=== PATIENT | female | born 1970 | race Caucasian/White ===

== ENCOUNTER 2017-10-21 11:11 | Inpatient (IN) ==
--- NOTE | 2017-10-20 20:50 | Discharge Summary ---
<Tessa Maher - Last Filed: 10/20/17 20:46> Date of Encounter: 10/20/17 - Discharge Diagnosis (1) Arthritis of knee, right Priority: Primary Status: Acute (2) Status post total knee replacement, right Priority: Primary Status: Acute (3) NANETTE (obstructive sleep apnea) Priority: Secondary Status: Chronic (4) Asthma Priority: Secondary Status: Chronic Qualifiers: Asthma severity: unspecified severity Asthma persistence: unspecified Asthma complication type: unspecified Qualified Code(s): J45.909 - Unspecified asthma, uncomplicated (5) Obesity Priority: Secondary Status: Chronic Qualifiers: Obesity type: due to excess calories Obesity classification: unspecified obesity classification Serious obesity comorbidity presence: unspecified whether serious comorbidity present Qualified Code(s): E66.09 - Other obesity due to excess calories - Hospital Course Hospital course: Ms. Mcfarland is a 47 year old female - Time Spent with Patient Total time spent providing and/or coordinating discharge services: - Discharge Medications Home Medications: Aspirin Enteric Coated [Aspirin EC] 325 mg PO BID 10 Days #20 tablet. [Rx] OxyCODONE Immed Rel [Roxicodone 5 MG] 5 mg PO Q6HR PRN 7 Days #28 tablet [Rx] Albuterol Sulfate [Albuterol Inhaler] 2 puff IH Q4H PRN 10/21/17 [History] Amlodipine Besylate 10 mg PO HS 10/21/17 [History] Aspirin 81 mg PO DAILY 10/21/17 [History] Atorvastatin [Lipitor] 40 mg PO HS 10/21/17 [History] Beclomethasone Diprop 80mcg [QVAR 80 mcg] 1 puff IH BID 10/21/17 [History] BuPROPion SR (12 HR) [Wellbutrin SR] 150 mg PO BID 10/21/17 [History] Cetirizine HCl [All Day Allergy] 10 mg PO DAILY 10/21/17 [History] Dicyclomine [Bentyl] 20 mg PO QID 10/21/17 [History] Duloxetine HCl [Cymbalta] 60 mg PO DAILY 10/21/17 [History] Losartan Potassium [Cozaar] 50 mg PO DAILY 10/21/17 [History] Meloxicam 15 mg PO DAILY 10/21/17 [History] Methocarbamol [Robaxin-750] 750 mg PO TID 10/21/17 [History] Mirtazapine [Remeron] 15 mg PO DAILY 10/21/17 [History] Pantoprazole Sodium 40 mg PO BID 10/21/17 [History] Zolpidem [Ambien] 10 mg PO HS 10/21/17 [History] raNITIdine HCl [Ranitidine HCl] 150 mg PO DAILY 10/21/17 [History] Allergies/Adverse Reactions: 3 Allergy/AdvReac Type Severity Reaction Status Date / Time hydrochlorothiazide Allergy Hives/ Verified 10/21/17 11:37 POTASSIUM DROPS Primary care physician: Josephine Noguera, - Patient Status Disposition: Transfer Inpatient Rehab Fac Condition: Good - Discharge Instructions Follow Up With: Hardy Jara MD [Partnered Physician] - 11/20/17 5:10 pm Tessa Maher PAC [Physician Site Auditor] - 10/31/17 9:00 am Jabier Myles MD [Partnered Physician] - 11/11/17 1:00 pm Josephine Noguera MD [Primary Care Provider] - Additional Instructions: Discharge Instructions: Total Knee Replacement Please call [facility] ([phone]), your Primary Care Physician, or report to the Emergency Room if you have any of the following symptoms: Nausea, vomiting, fever greater that 101.5, swelling, chest pain, shortness of breath, increased pain/redness/drainage/odor for your incision site, numbness/ tingling, or any other concerning symptoms. ACTIVITY:Weight-bearing as tolerated. You may progress off support (crutches or walker) as tolerated. MEDICATIONS: Upon discharge resume your home medications. Take all the medications as prescribed. Take a stool softener if taking narcotic pain medications. Stool softeners are only effective if you drink enough fluids. Drink 6-8 glass of water or fluids a day, unless this is not allowed for another health problem. Despite using stool softeners, if you haven't had a bowel movement in 3 days, please switch to a gentle laxative. Gentle laxatives are sold over the counter. You should have a bowel movement within 24 hours, if not call the office. You will be discharged from the hospital with a prescription for pain medication. You are encouraged to decrease the use of narcotic pain medication as tolerated. Should you require a refill, please call the office. [facility] prescribes narcotic pain medication for only 4-6 weeks after surgery. If you require pain medication beyond this time period, you may be referred to your Primary Care Physician or to the Pain Clinic for further evaluation. Plan ahead for refills on pain medication as many narcotics either need to be picked up at the office or mailed. It is best to call 48-72 hours in advance of needing a prescription refill so you don't run out of medication. To help control the post-operative pain, you may take NSAIDs (Aleve,Advil, Motrin, Ibuprofen, Naprosyn) or Tylenol as prescribed on the bottle in addition to the pain medication. ANTICOAGULATION (blood thinners): Continue your Aspirin, Lovenox or Coumadin as prescribed to help prevent a blood clot in the leg or in the lungs. As long as your incision remains dry and you tolerate the NSAIDs (Aleve, Advil, Motrin, ibuprofen, naprosyn), it is OK to use the NSAIDS while you are taking your anticoagulation medication. Should your incision start to drain, stop the NSAID and contact our office. Common symptoms of blood clot in the legs include: localized pain, swelling, calf tenderness, redness or discoloration of the skin. Blood clot in the lung symptoms include: shortness of breath, rapid pulse, sweating, and chest pain that worsens with deep breathing, coughing up blood, lightheadedness, feelings of anxiety. If you experience any of these symptoms notify your physician immediately, go to the emergency room, or if having trouble breathing, call 911. WOUND CARE: Leave the dressing on for 7 to 10days. You may change the dressing if it becomes saturated greater than 50%. Do not get the dressing wet at anytime. Wash your hands with antibacterial soap, rinse and dry prior to any wound care. If you have whitney the visiting nurse or rehab facility can remove the stapes 10-14 days after surgery and place steri-strips across the wound. Leave the steri-strips in place until they fall off on their won. You may let water from the shower run on top of the steri-strips. If you do not have a visiting nurse or rehab facility, you will need to return to the office at 10-14 days for the whitney to be removed. If you have itching or redness around the dressing call the office. FOLLOW-UP: Please follow up with your surgeon in the orthopedic clinic in 4 weeks from the day of surgery. If you have whitney that need to be removed, you will need to come back to the office in 10-14 days from the day of surgery. <Hardy Jara - Last Filed: 10/23/17 06:39> Orders not resulted at time of discharge: Pending orders 10/21/17 00:01 XR knee RT limited 1-2V [XR] Routine H/H [Hemoglobin and Hematocrit] [HEME] Routine 10/21/17 11:33 US anesthesia pain block [US] Routine Date of Encounter: 10/23/17 Time of Encounter: 06:39 - Discharge Diagnosis (1) Arthritis of knee, right Priority: Primary Status: Chronic (2) Status post total knee replacement, right Priority: Primary Status: Acute (3) NANETTE (obstructive sleep apnea) Priority: Secondary Status: Chronic (4) Asthma Priority: Secondary Status: Chronic Qualifiers: Asthma severity: unspecified severity Asthma persistence: unspecified Asthma complication type: unspecified Qualified Code(s): J45.909 - Unspecified asthma, uncomplicated (5) Morbid obesity with BMI of 50.0-59.9, adult Priority: Secondary Status: Chronic (6) Acute blood loss anemia Priority: Primary Status: Acute - Hospital Course Hospital course: Ms. Mcfarland is a 47 year old female Status post right total knee replacement The patient had an uneventful postoperative course. They received antibiotics and physical therapy and were discharged in stable condition. There will follow -up in the office in 2 weeks. - Time Spent with Patient Total time spent providing and/or coordinating discharge services: Primary care physician: Josephine Noguera, - Patient Status Functional capacity at discharge: uses cane/walker Overall status at discharge: patient is progressing back to baseline
--- NOTE | 2017-10-21 11:36 | Anesthesia Evaluation PreOp ---
Date of Encounter: 10/21/17 Time of Encounter: 11:34 - Past History Planned Operation: Robotic Right Total Knee Replacement Cardiac History: HTN, Hyperlipidemia Pulmonary History: Former smoker (quit 2010), Asthma, NANETTE Dx (-) REGISTRY RN History: Other (a/d,) Other Medical History: Other (Lumbar radiculopathy, SMO BMI-50.5) Anesthesia History: No Prior Anesthetic Complications, Past Anesthesia (dental exytraction, tubal,D&C, RAQUEL-BSO, GB, R. & L. knee scope,) : No ([facility]) Alcohol Use: none Drug use: none Medications and Allergies Aspirin Enteric Coated [Aspirin EC] 325 mg PO BID 10 Days #20 tablet. [Rx] OxyCODONE Immed Rel [Roxicodone 5 MG] 5 mg PO Q6HR PRN 7 Days #28 tablet [Rx] Albuterol Sulfate [Albuterol Inhaler] 2 puff IH Q4H PRN 10/21/17 [History] Amlodipine Besylate 10 mg PO HS 10/21/17 [History] Aspirin 81 mg PO DAILY 10/21/17 [History] Atorvastatin [Lipitor] 40 mg PO HS 10/21/17 [History] Beclomethasone Diprop 80mcg [QVAR 80 mcg] 1 puff IH BID 10/21/17 [History] BuPROPion SR (12 HR) [Wellbutrin SR] 150 mg PO BID 10/21/17 [History] Cetirizine HCl [All Day Allergy] 10 mg PO DAILY 10/21/17 [History] Dicyclomine [Bentyl] 20 mg PO QID 10/21/17 [History] Duloxetine HCl [Cymbalta] 60 mg PO DAILY 10/21/17 [History] Losartan Potassium [Cozaar] 50 mg PO DAILY 10/21/17 [History] Meloxicam [Meloxicam] 15 mg PO DAILY 10/21/17 [History] Methocarbamol [Robaxin-750] 750 mg PO TID 10/21/17 [History] Mirtazapine [Remeron] 15 mg PO DAILY 10/21/17 [History] Pantoprazole Sodium 40 mg PO BID 10/21/17 [History] Zolpidem [Ambien] 10 mg PO HS 10/21/17 [History] raNITIdine HCl [Ranitidine HCl] 150 mg PO DAILY 10/21/17 [History] 3 Allergy/AdvReac Type Severity Reaction Status Date / Time hydrochlorothiazide Allergy Hives/ Verified 10/21/17 11:37 POTASSIUM DROPS - Meds/Allergy Pre-op Review Medications Reviewed: Yes Allergies Reviewed: Yes Beta Blockers on Current Med List: No Anesthesia Results - Labs Laboratory Tests 05/18/15 10/07/17 10/07/17 09:56 13:55 13:55 WBC 6.2 Hgb 12.2 POC Hgb 12.6 Plt Count 231 INR 1.0 Sodium Potassium Chloride Carbon Dioxide BUN Creatinine 10/07/17 13:55 WBC Hgb POC Hgb Plt Count INR Sodium 139 Potassium 3.9 Chloride 106 Carbon Dioxide 26 BUN 20 Creatinine 1.10 - Imaging EKG: report reviewed (SR) Anesthesia Exam O2 Sat O2 Sat by Pulse Oximetry 96 Vital Signs Temp Pulse Resp BP Pulse Ox 98.0 F 100 18 135/74 96 10/21/17 11:44 10/21/17 11:44 10/21/17 11:44 10/21/17 11:44 10/21/17 11:44 Height: 5'4'' Weight: 294# NPO (# of Hours): > 8 hrs Pain Scale: 0 Pain Scale Used: Numeric (1 - 10) - HEENT Pupil (Motor): Pupils equal, EOMI Mallampati: III Teeth: Normal Oral Opening: Greater than 3 - REGISTRY RN LOC: Oriented REGISTRY RN Motor: Normal RUE, Normal LUE, Normal RLE, Normal LLE, Normal Face REGISTRY RN Sensory: Normal: RUE, LUE, RLE, LLE, Face - Cardiac Rhythm: Regular Murmur: None JVD: No Carotid Bruit: No - Pulmonary Breath Sounds: bilateral Clear Respiratory Effort: Symmetrical Anesthesia Assess/Plan ASA Score: 4 Modified Lynn Scale for Level of Consciousness: Cooperative, oriented, and tranquil Anesthetic Plan: General, Regional Autologous Blood: Yes Monitoring Plan: Standard Monitors Recovery Plan: PACU
--- NOTE | 2017-10-21 11:58 | History & Physical Report ---
Date of Encounter: 10/21/17 Time of Encounter: 11:58 24 Hour HP Update - Instructions Instructions: If the History and Physical is less than 30 days old and was completed prior to A.M. admission and or procedure and has NOT been updated on calendar day of procedure please complete this update prior to performing procedure. - Update Patient reports changes in Medical Condition: No Changes in examination, assessment, or condition: No Changes in Medication: No Preop tests/diagnostics Reviewed: Yes Surgery Remains Indicated: Yes Consent for Planned Operative Procedure(s) Verified: Yes - Pre-Operative Checklist Preoperative Checklist Indicated: No Prophylactic Antibiotic Ordered: Yes Is VTE Prophylaxis Indicated?: Yes
[2017-10-21] MEDS ORDERED: Albuterol 2.5 MG/3 ML NEBULIZER IH ONE (12:04)
[2017-10-21] MEDS ORDERED: Lidocaine -MPF 1% 2 ML VIAL ID ONE (12:04)
[2017-10-21] MEDS ORDERED: CeFAZolin Syr 3,000MG/30 ML 3,000 MG/30 ML SYRINGE IVPB ONE (12:04)
[2017-10-21] MEDS ORDERED: Albuterol 2.5 MG/3 ML NEBULIZER ONE (12:08)
[2017-10-21] MEDS: Ringers Solution, Lactated 1,000 ML IVC SCH ×2 (12:34→15:45)
[2017-10-21] MEDS ORDERED: Dexamethasone 4 MG/ML VIAL ONE (13:43)
[2017-10-21] MEDS ORDERED: Ondansetron 4 MG/2 ML VIAL ONE (13:43)
[2017-10-21] MEDS ORDERED: Lidocaine -MPF 2% 2 ML VIAL ONE (13:43)
[2017-10-21] MEDS ORDERED: *HR* Propofol 200 MG/20 ML VIAL IVP ONE (13:44)
[2017-10-21] MEDS ORDERED: *HR* FentaNYL (PF) 100 MCG/2 ML VIAL ONE ×3 (13:44→15:51)
[2017-10-21] MEDS ORDERED: *HR* Midazolam HCl 2 MG/2 ML VIAL ONE (13:44)
[2017-10-21] MEDS ORDERED: Ethanol\\Acetic Acid\\Na Ace\\Ben 1,000 ML IRRIG.SOLN IR ONE (13:50)
[2017-10-21] MEDS ORDERED: ROPIVACAINE HCL/PF 0.5% 30 ML VIAL ONE (14:24)
[2017-10-21] MEDS ORDERED: Bupivacaine/Clonidine Syringe 1 EACH SYRINGE ONE (14:25)
[2017-10-21] MEDS ORDERED: Ketamine *HR* 500 MG/10 ML MDV ONE (15:28)
[2017-10-21] MEDS ORDERED: *HR* Promethazine 25 MG/ML VIAL IVP PRN (15:35)
[2017-10-21] MEDS ORDERED: *HR* OxyCODONE Immed Rel 5 MG TABLET PO PRN ×2 (15:35→17:53)
[2017-10-21] MEDS ORDERED: Ondansetron 4 MG/2 ML VIAL IVP ONE (15:35)
[2017-10-21] MEDS ORDERED: MORPHINE SUL Oral CONC 10 MG/0.5 ML ORAL.SYG SL PRN (15:35)
[2017-10-21] MEDS ORDERED: Acetaminophen IV 1,000 MG/100 ML INFUS..BTL ONE (15:40)
--- NOTE | 2017-10-21 16:07 | Orthopedic Operative Note ---
Date of procedure: 10/21/17 Pre-op diagnosis: Right knee arthritis Post-op diagnosis: same Procedure: Procedure: Right robotic-assisted Total knee replacement Estimated blood loss: 300 cc Hardware: Metal and polyethylene replacement. Weatherby Femur: 2 Tibia: 3 TS insert: 13 Patella: 36 Exam Under anesthesia: 3 valgus 2 hyperextension as calculated by the robot full flexion and no instability Procedural Notes: Grade 3 arthritic changes lateral compartment patella femoral joint Operative procedure: The patient was brought to the operating room and placed on the operating room table. After general anesthesia was administered the operative knee was examined. Findings were noted in the exam under anesthesia. The operative extremity was prepped and draped in sterile surgical fashion. The patient received IV antibiotics prior to skin incision. A standard midline incision was made centered over the patella. The incision was made through the skin and subcutaneous tissue. A medial parapatellar tendon approach was performed. Care was taken to preserve tissue along the medial aspect of the patella. And to protect the patella tendon. The deep MCL was released off the medial tibia. The infra patella fat pad was excised. The patella was everted and cut was made at the level of the insertion of the quadriceps and patella tendon. The patella was sized to a 36 the guide was seated and the lug holes are drilled. Knee was brought into flexion. Patient noted to have rate 3 arthritic changes patellofemoral joint and lateral compartment. Steinmann pins were placed in the tibia and the femur for the tibial and femoral arrays respectively. Checkpoints were also placed in the tibia and the femur for calculation purposes. The knee including the femur and the tibial registered. Osteophytes , ACL and PCL were excised at this point. Extension and flexion were assessed with a valgus stress components were adjusted on the computer to balance the knee. Femoral cuts were made first with robotic assistance, these included the anterior cut posterior cuts chamfer cuts. Tibial cut was then performed with robotic assistance as well. Bone fragments were removed, as well as the medial and lateral meniscus. The size 2 femoral guide was seated box cut was made lug holes are drilled. The size 3 tibial tray was seated and prepared with the fin cutter. Trial reduction with the 13 TS Anne revealed extension of 0 degree and 2 degrees varus and full flexion. No varus valgus instability. Trial reduction revealed excellent patella tracking. All trial components were removed all bony surfaces were irrigated. The Tibia was seated followed by the femur, The Anne size 13 was seated and secured patella. Patient had similar findings for motion and stability. The knee was closed by the PA. The knee was then irrigated out with 2 L of pulse irrigation. The extensor mechanism was closed with #2 FiberWire suture and #2 PDS suture. The subcutaneous tissue was then irrigated and closed deep with #1 PDS suture superficially with 0 PDS suture and skin was closed with zip tie The patient was then placed in a sterile dressing and a postoperative brace extubated and transferred to recovery room in stable condition. Anesthesia: GETA Surgeon: Hardy Jara Was there an respiratory therapy assistant present: Yes English Professor: Daphne Zelaya Estimated blood loss (cc): 300 Condition: stable Disposition: PACU
[2017-10-21] MEDS ORDERED: *HR* PHENYLEPHRINE 1,000 MCG/10 ML SYRINGE IVP ONE (16:17)
[2017-10-21] MEDS: *HR* Meperidine 25 MG/ML SYRINGE IVP PRN ×2 (17:00→17:15)
[2017-10-21 17:43] LABS: Hematocrit 32.6 % (35.3-44.9); Hemoglobin 10.7 g/dL (11.5-15.4)
[2017-10-21] MEDS ORDERED: Naloxone 0.4 MG/ML INJ IVP PRN (17:53)
[2017-10-21] MEDS ORDERED: Temazepam 15 MG CAPSULE PO PRN (17:53)
[2017-10-21] MEDS ORDERED: Ondansetron 4 MG/2 ML VIAL IVP PRN (17:53)
[2017-10-21] MEDS ORDERED: Sennosides 8.6 MG TABLET PO PRN (17:53)
[2017-10-21] MEDS ORDERED: Ringers Solution, Lactated 1,000 ML IVC SCH (17:53)
[2017-10-21] MEDS ORDERED: MOM Conc 10 ML UD.LIQ PO PRN (17:53)
[2017-10-21] MEDS ORDERED: *HR* Enoxaparin 30 MG/0.3 ML SYRINGE SQ SCH (18:00)
--- NOTE | 2017-10-21 18:02 | Anesthesia Evaluation Post Op ---
Date of Encounter: 10/21/17 Time of Encounter: 17:50 - Vital Signs Vital Signs: Vital Signs/O2 Sat, Most Current Temp Pulse Resp BP Pulse Ox 98.3 F 100 16 109/74 95 10/21/17 17:44 10/21/17 17:44 10/21/17 17:44 10/21/17 17:44 10/21/17 17:44 - Lungs Lungs: Clear Ascult./Percussion - Airway Airway: Non-obstructed - Cardiovascular Regular Rate - Mental Status Mental Status: Alert & Oriented, Answers Appropriately - Pain Pain Scale: 4 Pain Scale used: Numeric (1 - 10) - Nausea Vomiting Nausea Vomiting: Not Present - Hydration Hydration: Ice chips, Has not voided - Discharge PostOp Status: Transfer Patient to floor
[2017-10-21] MEDS: Beclomethasone 80mcg MDI IH SCH (20:46)
[2017-10-21] MEDS: BuPROPion SR (12 HR) 150 MG TABLET PO SCH (22:49)
[2017-10-21] MEDS: amLODIPine 5 MG TABLET PO SCH (22:50)
[2017-10-21] MEDS: CeFAZolin Premix DUPLEX 2,000 MG/50 ML BAG IVPB SCH (22:52)
[2017-10-21] MEDS: Methocarbamol 750 MG TABLET PO SCH ×2 (22:56→23:05)
[2017-10-22] MEDS: *HR* OxyCODONE Immed Rel 5 MG TABLET PO PRN ×5 (02:30→20:11)
[2017-10-22 06:28] LABS: Hematocrit 31.5 % (35.3-44.9); Hemoglobin 9.9 g/dL (11.5-15.4)
[2017-10-22 06:52] LABS: BUN/Creatinine Ratio 16 (6-26); Blood Urea Nitrogen 16 mg/dL (6-20); Calcium 8.2 mg/dL (8.6-10.3); Carbon Dioxide 27 mEq/L (23-29); Chloride 105 mEq/L (98-107); Glucose 168 mg/dL (70-105); Osmolality,Calculated 291 (280-300); Potassium 4.4 mEq/L (3.5-5.1); Sodium 138 mEq/L (136-145); eGFR For African Americans > 60 (> 60); eGFR For Non-African Americans > 60 (> 60)
[2017-10-22] MEDS: *HR* Enoxaparin 30 MG/0.3 ML SYRINGE SQ SCH ×3 (07:31→16:03)
[2017-10-22] MEDS: CeFAZolin Premix DUPLEX 2,000 MG/50 ML BAG IVPB SCH (07:57)
--- NOTE | 2017-10-22 08:17 | Orthopedics Progress Note ---
Date of Encounter: 10/22/17 Time of Encounter: 08:17 - Assessment and Plan (1) Arthritis of knee, right Current Visit: No Status: Chronic (2) Status post total knee replacement, right Current Visit: No Status: Acute (3) NANETTE (obstructive sleep apnea) Current Visit: No Status: Chronic (4) Asthma Current Visit: No Status: Chronic Qualifiers: Asthma severity: unspecified severity Asthma persistence: unspecified Asthma complication type: unspecified Qualified Code(s): J45.909 - Unspecified asthma, uncomplicated (5) Morbid obesity with BMI of 50.0-59.9, adult Current Visit: Yes Status: Chronic Subjective Interval history: Patient was seen this morning doing well without complaints. Afebrile vital signs stable. Operative extremity: Neurovascularly intact Dressing clean dry and intact Calves nontender Assessment and plan: Continue with postoperative care Hematocrit 31 Objective Vital signs: Vital Signs Temp Pulse Resp BP Pulse Ox 10/22/17 06:39 98.0 F 93 18 109/73 96 10/22/17 04:40 98.5 F 101 16 115/79 97 10/22/17 01:03 99.3 F 100 16 101/62 95 10/21/17 20:44 18 94 10/21/17 20:30 98.6 F 78 16 118/78 96 10/21/17 19:30 98.5 F 80 16 130/75 95 10/21/17 18:40 97.7 F 100 16 110/67 95 10/21/17 18:02 98.1 F 95 18 129/86 95 10/21/17 17:44 98.3 F 100 16 109/74 95 10/21/17 17:34 98 16 121/81 94 10/21/17 17:24 106 16 128/78 95 10/21/17 17:14 98.5 F 103 16 128/80 94 10/21/17 17:04 100 14 135/86 95 10/21/17 16:54 104 14 133/83 94 10/21/17 16:44 99.9 F H 102 12 134/94 97 10/21/17 14:50 105 18 129/79 95 10/21/17 14:36 101 18 135/94 95 10/21/17 11:44 98.0 F 100 18 135/74 96 Intake and Output 10/21/17 10/22/17 10/22/17 23:59 07:59 15:59 Intake Total 50 / 50 Output Total 300 / 300 Balance -250 / -250 Intake: IV Fluids 50 / 50 Ancef Premix DUPLEX 2,000 mg In 50 / 50 50 ml @ 100 mls/hr IVPB Q8H [facility] Rx#:[id number] Output: Estimated Blood Loss 300 / 300 - Labs CBC & BMP: 10/22/17 05:58 10/22/17 05:58 Labs: Abnormal lab results Hgb 9.9 g/dL (11.5-15.4) L 10/22/17 05:58 Hct 31.5 % (35.3-44.9) L 10/22/17 05:58 Glucose 168 mg/dL (70-105) H 10/22/17 05:58 Calcium 8.2 mg/dL (8.6-10.3) L 10/22/17 05:58 - VTE Documentation of Mechanical Device: Venous foot pump, device Consult Discharge Plan - Plan Referrals: Josephine Noguera MD [Primary Care Provider] -
[2017-10-22] MEDS: Methocarbamol 750 MG TABLET PO SCH ×3 (09:06→20:10)
[2017-10-22] MEDS: BuPROPion SR (12 HR) 150 MG TABLET PO SCH ×2 (09:06→20:10)
[2017-10-22] MEDS: Famotidine 20 MG TABLET PO SCH (09:06)
[2017-10-22] MEDS: Aspirin 81 MG TAB.CHEW PO SCH (09:06)
[2017-10-22] MEDS: Mirtazapine 15 MG TABLET PO SCH (09:06)
[2017-10-22] MEDS: Beclomethasone 80mcg MDI IH SCH ×2 (10:59→20:33)
[2017-10-22] MEDS: Loratadine 10 MG TABLET PO SCH (12:01)
--- NOTE | 2017-10-22 16:01 | Event Note ---
Date of Encounter: 10/22/17 Time of Encounter: 12:40 PCR - POD#1 - Right TKR Robo 10/21/17 Patient seen at bedside. Labs reviewed. Pain control: adequate now Participating in PT this PM, refused this AM secondary to pain. All questions and concerns addressed. Educated on use of incentive spirometer. Encouraged ambulation and proper hydration. Patient educated on post-operative restrictions and post-operative care. Addressed: nerve block and effects Discharge plan: Patient will likely require ECF or HH secondary to current lmitations - both continuities placed.
--- NOTE | 2017-10-22 16:02 | Physician Discharge Referral ---
Home Health/Hosp Referral Info Transfer to: Home Health Attending Provider: Provider in Charge Post Discharge: PCP - Diagnosis (1) Arthritis of knee, right Priority: Primary Status: Chronic (2) Status post total knee replacement, right Priority: Primary Status: Acute (3) NANETTE (obstructive sleep apnea) Priority: Secondary Status: Chronic (4) Asthma Priority: Secondary Status: Chronic (5) Obesity Priority: Secondary Status: Chronic - Respiratory Orders None Smoking Cessation: Smoking cessation has been advised. For more information, call the [place] Tobacco Quit Line at 6-795-PTVJ-NOW. - Diet/Nutrition Diet/Nutrition Orders: Regular - Activity Activity Orders: Up ad ghazala, Ambulate - Services Needed Following services are medically necessary services: Nursing, Home Health Aide, Physical Therapy, Occupational Therapy Home Care Orders: Knee Continuity: Opsite dressing, leave intact until first post-operative visit. If dressing becomes >50% saturated, contact office, remove dressing and place appropriate dressing in its place. Do not allow for dressing to get wet. Zipline/Cotton in place, plan to remove at post-operative day #14-16. Total Joint Precautions x 6 weeks Apply cold therapy wrap 3-6x/day for 20 minutes at a time. Encourage ambulation throughout the day Use Incentive spirometer 10x/hour. Elevate affected extremity above heart as tolerated. Brace: Wear knee immobilizer at night x 2 weeks.~ - Transfer Medications Home Medications: Aspirin Enteric Coated [Aspirin EC] 325 mg PO BID 10 Days #20 tablet. [Rx] OxyCODONE Immed Rel [Roxicodone 5 MG] 5 mg PO Q6HR PRN 7 Days #28 tablet [Rx] Albuterol Sulfate [Albuterol Inhaler] 2 puff IH Q4H PRN 10/21/17 [History] Amlodipine Besylate 10 mg PO HS 10/21/17 [History] Aspirin 81 mg PO DAILY 10/21/17 [History] Atorvastatin [Lipitor] 40 mg PO HS 10/21/17 [History] Beclomethasone Diprop 80mcg [QVAR 80 mcg] 1 puff IH BID 10/21/17 [History] BuPROPion SR (12 HR) [Wellbutrin SR] 150 mg PO BID 10/21/17 [History] Cetirizine HCl [All Day Allergy] 10 mg PO DAILY 10/21/17 [History] Dicyclomine [Bentyl] 20 mg PO QID 10/21/17 [History] Duloxetine HCl [Cymbalta] 60 mg PO DAILY 10/21/17 [History] Losartan Potassium [Cozaar] 50 mg PO DAILY 10/21/17 [History] Meloxicam 15 mg PO DAILY 10/21/17 [History] Methocarbamol [Robaxin-750] 750 mg PO TID 10/21/17 [History] Mirtazapine [Remeron] 15 mg PO DAILY 10/21/17 [History] Pantoprazole Sodium 40 mg PO BID 10/21/17 [History] Zolpidem [Ambien] 10 mg PO HS 10/21/17 [History] raNITIdine HCl [Ranitidine HCl] 150 mg PO DAILY 10/21/17 [History] Allergies/Adverse Reactions: 3 Allergy/AdvReac Type Severity Reaction Status Date / Time hydrochlorothiazide Allergy Hives/ Verified 10/21/17 11:37 POTASSIUM DROPS Certification: Further, I certify that my clinical findings support that this patient is homebound (i.e. absences from home require considerable and taxing effort and are for medical reasons or judaism services or infrequently or short duration when for other reasons) because: Homebound Reason: Patient requires assistance of a person or device to safely leave home Attestation: My signature below is to certify that this patient is under my care and that I, or nurse practitioner, or a physician's liaison inspection laboratory assistant working with me, has a face-to -face encounter with this patient.
--- NOTE | 2017-10-22 16:03 | Physician Discharge Referral ---
ExtendedCare Referral Info Transfer To: [facility] Provider in Charge: Provider in Charge after Transfer: PCP Institutional Level of Care: Skilled - Diagnosis (1) Arthritis of knee, right Priority: Primary Status: Chronic (2) Status post total knee replacement, right Priority: Primary Status: Acute (3) NANETTE (obstructive sleep apnea) Priority: Secondary Status: Chronic (4) Asthma Priority: Secondary Status: Chronic (5) Obesity Priority: Secondary Status: Chronic Expected Duration of Placement: < 30 days Prognosis: Good Aware of Diagnosis: Patient Aware of Prognosis: Patient - Transfer Medications Home Medications: Aspirin Enteric Coated [Aspirin EC] 325 mg PO BID 10 Days #20 tablet. [Rx] OxyCODONE Immed Rel [Roxicodone 5 MG] 5 mg PO Q6HR PRN 7 Days #28 tablet [Rx] Albuterol Sulfate [Albuterol Inhaler] 2 puff IH Q4H PRN 10/21/17 [History] Amlodipine Besylate 10 mg PO HS 10/21/17 [History] Aspirin 81 mg PO DAILY 10/21/17 [History] Atorvastatin [Lipitor] 40 mg PO HS 10/21/17 [History] Beclomethasone Diprop 80mcg [QVAR 80 mcg] 1 puff IH BID 10/21/17 [History] BuPROPion SR (12 HR) [Wellbutrin SR] 150 mg PO BID 10/21/17 [History] Cetirizine HCl [All Day Allergy] 10 mg PO DAILY 10/21/17 [History] Dicyclomine [Bentyl] 20 mg PO QID 10/21/17 [History] Duloxetine HCl [Cymbalta] 60 mg PO DAILY 10/21/17 [History] Losartan Potassium [Cozaar] 50 mg PO DAILY 10/21/17 [History] Meloxicam 15 mg PO DAILY 10/21/17 [History] Methocarbamol [Robaxin-750] 750 mg PO TID 10/21/17 [History] Mirtazapine [Remeron] 15 mg PO DAILY 10/21/17 [History] Pantoprazole Sodium 40 mg PO BID 10/21/17 [History] Zolpidem [Ambien] 10 mg PO HS 10/21/17 [History] raNITIdine HCl [Ranitidine HCl] 150 mg PO DAILY 10/21/17 [History] Allergies/Adverse Reactions: 3 Allergy/AdvReac Type Severity Reaction Status Date / Time hydrochlorothiazide Allergy Hives/ Verified 10/21/17 11:37 POTASSIUM DROPS - Respiratory Orders None Smoking Cessation: Smoking cessation has been advised. For more information, call the [place] Tobacco Quit Line at 1-148-PVML-NOW. - Ancillary Orders May use pressure relief devices daily prn, May go on RADHA w/family/respon green party w /meds at nurse discretion PRN, May consult with Dentist, Sugar Cane Farm Manager, Rate Quoting Operator PRN - Mobility Orders Chair, Ambulate - Rehabiliation Orders Rehab Potential: Good Rehab Orders: ROM Exercises, Evaluation for Physical Therapy, Evaluation for Occupational Therapy Other: Knee Continuity: Opsite dressing, leave intact until first post-operative visit. If dressing becomes >50% saturated, contact office, remove dressing and place appropriate dressing in its place. Do not allow for dressing to get wet. Zipline/[place] in place, plan to remove at post-operative day #14-16. Total Joint Precautions x 6 weeks Apply cold therapy wrap 3-6x/day for 20 minutes at a time. Encourage ambulation throughout the day Use Incentive spirometer 10x/hour. Elevate affected extremity above heart as tolerated. Brace: Wear knee immobilizer at night x 2 weeks.~ - Treatments List/Other: Knee Continuity: Opsite dressing, leave intact until first post-operative visit. If dressing becomes >50% saturated, contact office, remove dressing and place appropriate dressing in its place. Do not allow for dressing to get wet. Zipline/[place] in place, plan to remove at post-operative day #14-16. Total Joint Precautions x 6 weeks Apply cold therapy wrap 3-6x/day for 20 minutes at a time. Encourage ambulation throughout the day Use Incentive spirometer 10x/hour. Elevate affected extremity above heart as tolerated. Brace: Wear knee immobilizer at night x 2 weeks.~ CERTIFICATION: I certify that the transfer of the above named patient to an Extended Care Facility is necessary for the continuing treatment of the diagnosis listed. The above information is true and accurate reflection of patient's current condition. Confidential - Redisclosure prohibited without a patient's written consent.
[2017-10-22] MEDS: amLODIPine 5 MG TABLET PO SCH (20:10)
[2017-10-23] MEDS: *HR* OxyCODONE Immed Rel 5 MG TABLET PO PRN ×6 (00:04→22:19)
[2017-10-23] MEDS: *HR* Enoxaparin 30 MG/0.3 ML SYRINGE SQ SCH ×2 (05:25→16:44)
[2017-10-23 06:01] LABS: Hematocrit 30.9 % (35.3-44.9); Hemoglobin 9.7 g/dL (11.5-15.4)
[2017-10-23 06:24] LABS: BUN/Creatinine Ratio 18 (6-26); Blood Urea Nitrogen 18 mg/dL (6-20); Calcium 8.5 mg/dL (8.6-10.3); Carbon Dioxide 31 mEq/L (23-29); Chloride 102 mEq/L (98-107); Glucose 141 mg/dL (70-105); Osmolality,Calculated 292 (280-300); Potassium 4.1 mEq/L (3.5-5.1); Sodium 139 mEq/L (136-145); eGFR For African Americans > 60 (> 60); eGFR For Non-African Americans > 60 (> 60)
--- NOTE | 2017-10-23 06:40 | Orthopedics Progress Note ---
Date of Encounter: 10/23/17 Time of Encounter: 06:40 - Assessment and Plan (1) Arthritis of knee, right Current Visit: No Status: Chronic (2) Status post total knee replacement, right Current Visit: No Status: Acute (3) NANETTE (obstructive sleep apnea) Current Visit: No Status: Chronic (4) Asthma Current Visit: No Status: Chronic Qualifiers: Asthma severity: unspecified severity Asthma persistence: unspecified Asthma complication type: unspecified Qualified Code(s): J45.909 - Unspecified asthma, uncomplicated (5) Morbid obesity with BMI of 50.0-59.9, adult Current Visit: Yes Status: Chronic (6) Acute blood loss anemia Current Visit: Yes Status: Acute Subjective Interval history: Patient was seen this morning doing well without complaints. Afebrile vital signs stable. Operative extremity: Neurovascularly intact Dressing clean dry and intact Calves nontender Assessment and plan: Continue with postoperative care Hematocrit 29 discharged today Objective Vital signs: Vital Signs Temp Pulse Resp BP Pulse Ox 10/23/17 00:27 99 F 105 17 124/78 98 10/22/17 20:33 18 97 10/22/17 19:53 98.7 F 93 17 119/69 96 10/22/17 15:00 98.2 F 113 16 111/75 94 10/22/17 11:37 98.0 F 109 18 118/71 96 10/22/17 10:59 16 111/75 99 Intake and Output 10/22/17 10/22/17 10/23/17 15:59 23:59 07:59 Intake Total 580 / 580 Balance 580 / 580 Intake: Oral 580 / 580 Other: Meal Lunch Percent of Meal Consumed 100% # Voids 1 - Labs CBC & BMP: 10/23/17 05:08 10/23/17 05:08 Labs: Abnormal lab results Hgb 9.7 g/dL (11.5-15.4) L 10/23/17 05:08 Hct 30.9 % (35.3-44.9) L 10/23/17 05:08 Carbon Dioxide 31 mEq/L (23-29) H 10/23/17 05:08 Glucose 141 mg/dL (70-105) H 10/23/17 05:08 Calcium 8.5 mg/dL (8.6-10.3) L 03/14/18 05:08 - VTE Documentation of Mechanical Device: Venous foot pump, device Consult Discharge Plan - Plan Additional Instructions: Discharge Instructions: Total Knee Replacement Please call [facility] ([phone]), your Primary Care Physician, or report to the Emergency Room if you have any of the following symptoms: Nausea, vomiting, fever greater that 101.5, swelling, chest pain, shortness of breath, increased pain/redness/drainage/odor for your incision site, numbness/ tingling, or any other concerning symptoms. ACTIVITY:Weight-bearing as tolerated. You may progress off support (crutches or walker) as tolerated. MEDICATIONS: Upon discharge resume your home medications. Take all the medications as prescribed. Take a stool softener if taking narcotic pain medications. Stool softeners are only effective if you drink enough fluids. Drink 6-8 glass of water or fluids a day, unless this is not allowed for another health problem. Despite using stool softeners, if you haven't had a bowel movement in 3 days, please switch to a gentle laxative. Gentle laxatives are sold over the counter. You should have a bowel movement within 24 hours, if not call the office. You will be discharged from the hospital with a prescription for pain medication. You are encouraged to decrease the use of narcotic pain medication as tolerated. Should you require a refill, please call the office. [facility] prescribes narcotic pain medication for only 4-6 weeks after surgery. If you require pain medication beyond this time period, you may be referred to your Primary Care Physician or to the Pain Clinic for further evaluation. Plan ahead for refills on pain medication as many narcotics either need to be picked up at the office or mailed. It is best to call 48-72 hours in advance of needing a prescription refill so you don't run out of medication. To help control the post-operative pain, you may take NSAIDs (Aleve,Advil, Motrin, Ibuprofen, Naprosyn) or Tylenol as prescribed on the bottle in addition to the pain medication. ANTICOAGULATION (blood thinners): Continue your Aspirin, Lovenox or Coumadin as prescribed to help prevent a blood clot in the leg or in the lungs. As long as your incision remains dry and you tolerate the NSAIDs (Aleve, Advil, Motrin, ibuprofen, naprosyn), it is OK to use the NSAIDS while you are taking your anticoagulation medication. Should your incision start to drain, stop the NSAID and contact our office. Common symptoms of blood clot in the legs include: localized pain, swelling, calf tenderness, redness or discoloration of the skin. Blood clot in the lung symptoms include: shortness of breath, rapid pulse, sweating, and chest pain that worsens with deep breathing, coughing up blood, lightheadedness, feelings of anxiety. If you experience any of these symptoms notify your physician immediately, go to the emergency room, or if having trouble breathing, call 911. WOUND CARE: Leave the dressing on for 7 to 10days. You may change the dressing if it becomes saturated greater than 50%. Do not get the dressing wet at anytime. Wash your hands with antibacterial soap, rinse and dry prior to any wound care. If you have whitney the visiting nurse or rehab facility can remove the stapes 10-14 days after surgery [address] steri-strips across the wound. Leave the steri-strips in place until they fall off on their won. You may let water from the shower run on top of the steri-strips. If you do not have a visiting nurse or rehab facility, you will need to return to the office at 10-14 days for the whitney to be removed. If you have itching or redness around the dressing call the office. FOLLOW-UP: Please follow up with your surgeon in the orthopedic clinic in 4 weeks from the day of surgery. If you have whitney that need to be removed, you will need to come back to the office in 10-14 days from the day of surgery. Referrals: Hardy Jara MD [Partnered Physician] - 11/20/17 5:10 pm Tessa Maher PAC [Physician Hydrologic Modeler] - 10/31/17 9:00 am Jabier Myles MD [Partnered Physician] - 11/11/17 1:00 pm Josephine Noguera MD [Primary Care Provider] -
[2017-10-23] MEDS: Loratadine 10 MG TABLET PO SCH (08:04)
[2017-10-23] MEDS: Methocarbamol 750 MG TABLET PO SCH ×3 (08:04→22:19)
[2017-10-23] MEDS: Aspirin 81 MG TAB.CHEW PO SCH (08:04)
[2017-10-23] MEDS: Mirtazapine 15 MG TABLET PO SCH (08:04)
[2017-10-23] MEDS: BuPROPion SR (12 HR) 150 MG TABLET PO SCH ×2 (08:04→22:19)
[2017-10-23] MEDS: Famotidine 20 MG TABLET PO SCH (08:04)
[2017-10-23] MEDS: Beclomethasone 80mcg MDI IH SCH ×2 (08:13→20:50)
[2017-10-23] MEDS: Ibuprofen 600 MG TABLET PO PRN ×2 (09:18→15:14)
[2017-10-23] MEDS: amLODIPine 5 MG TABLET PO SCH (22:19)
--- NOTE | 2017-10-24 06:05 | Orthopedics Progress Note ---
Date of Encounter: 10/24/17 Time of Encounter: 06:05 - Assessment and Plan (1) Arthritis of knee, right Current Visit: No Status: Chronic (2) Status post total knee replacement, right Current Visit: No Status: Acute (3) NANETTE (obstructive sleep apnea) Current Visit: No Status: Chronic (4) Asthma Current Visit: No Status: Chronic Qualifiers: Asthma severity: unspecified severity Asthma persistence: unspecified Asthma complication type: unspecified Qualified Code(s): J45.909 - Unspecified asthma, uncomplicated (5) Morbid obesity with BMI of 50.0-59.9, adult Current Visit: Yes Status: Chronic (6) Acute blood loss anemia Current Visit: Yes Status: Acute Subjective Interval history: Patient was seen this morning doing well without complaints. Afebrile vital signs stable. Operative extremity: Neurovascularly intact Dressing clean dry and intact Calves nontender Assessment and plan: Continue with postoperative care discharged today Objective Vital signs: Vital Signs Temp Pulse Resp BP Pulse Ox 10/23/17 22:36 97.4 F L 100 16 131/76 95 10/23/17 20:50 16 95 10/23/17 20:01 98.5 F 111 16 105/70 93 10/23/17 10:04 98.7 F 94 16 126/78 99 10/23/17 08:15 16 98 10/23/17 06:44 98.8 F 98 16 128/73 98 Intake and Output 10/23/17 10/23/17 10/24/17 15:59 23:59 07:59 Intake Total 300 / 300 Output Total 250 / 250 Balance 50 / 50 Intake: Oral 300 / 300 Output: Urine 250 / 250 Other: Meal Lunch Percent of Meal Consumed 80% # Voids 1 - Labs CBC & BMP: 10/23/17 05:08 10/23/17 05:08 Labs: Abnormal lab results Hgb 9.7 g/dL (11.5-15.4) L 10/23/17 05:08 Hct 30.9 % (35.3-44.9) L 10/23/17 05:08 Carbon Dioxide 31 mEq/L (23-29) H 10/23/17 05:08 Glucose 141 mg/dL (70-105) H 10/23/17 05:08 Calcium 8.5 mg/dL (8.6-10.3) L 10/23/17 05:08 - VTE Documentation of Mechanical Device: Venous foot pump, device Consult Discharge Plan - Plan Additional Instructions: Discharge Instructions: Total Knee Replacement Please call [facility] ([phone]), your Primary Care Physician, or report to the Emergency Room if you have any of the following symptoms: Nausea, vomiting, fever greater that 101.5, swelling, chest pain, shortness of breath, increased pain/redness/drainage/odor for your incision site, numbness/ tingling, or any other concerning symptoms. ACTIVITY:Weight-bearing as tolerated. You may progress off support (crutches or walker) as tolerated. MEDICATIONS: Upon discharge resume your home medications. Take all the medications as prescribed. Take a stool softener if taking narcotic pain medications. Stool softeners are only effective if you drink enough fluids. Drink 6-8 glass of water or fluids a day, unless this is not allowed for another health problem. Despite using stool softeners, if you haven't had a bowel movement in 3 days, please switch to a gentle laxative. Gentle laxatives are sold over the counter. You should have a bowel movement within 24 hours, if not call the office. You will be discharged from the hospital with a prescription for pain medication. You are encouraged to decrease the use of narcotic pain medication as tolerated. Should you require a refill, please call the office. [facility] prescribes narcotic pain medication for only 4-6 weeks after surgery. If you require pain medication beyond this time period, you may be referred to your Primary Care Physician or to the Pain Clinic for further evaluation. Plan ahead for refills on pain medication as many narcotics either need to be picked up at the office or mailed. It is best to call 48-72 hours in advance of needing a prescription refill so you don't run out of medication. To help control the post-operative pain, you may take NSAIDs (Aleve,Advil, Motrin, Ibuprofen, Naprosyn) or Tylenol as prescribed on the bottle in addition to the pain medication. ANTICOAGULATION (blood thinners): Continue your Aspirin, Lovenox or Coumadin as prescribed to help prevent a blood clot in the leg or in the lungs. As long as your incision remains dry and you tolerate the NSAIDs (Aleve, Advil, Motrin, ibuprofen, naprosyn), it is OK to use the NSAIDS while you are taking your anticoagulation medication. Should your incision start to drain, stop the NSAID and contact our office. Common symptoms of blood clot in the legs include: localized pain, swelling, calf tenderness, redness or discoloration of the skin. Blood clot in the lung symptoms include: shortness of breath, rapid pulse, sweating, and chest pain that worsens with deep breathing, coughing up blood, lightheadedness, feelings of anxiety. If you experience any of these symptoms notify your physician immediately, go to the emergency room, or if having trouble breathing, call 911. WOUND CARE: Leave the dressing on for 7 to 10days. You may change the dressing if it becomes saturated greater than 50%. Do not get the dressing wet at anytime. Wash your hands with antibacterial soap, rinse and dry prior to any wound care. If you have whitney the visiting nurse or rehab facility can remove the stapes 10-14 days after surgery and place steri-strips across the wound. Leave the steri-strips in place until they fall off on their won. You may let water from the shower run on top of the steri-strips. If you do not have a visiting nurse or rehab facility, you will need to return to the office at 10-14 days for the whitney to be removed. If you have itching or redness around the dressing call the office. FOLLOW-UP: Please follow up with your surgeon in the orthopedic clinic in 4 weeks from the day of surgery. If you have whitney that need to be removed, you will need to come back to the office in 10-14 days from the day of surgery. Referrals: Hardy Jara MD [Partnered Physician] - 11/20/17 5:10 pm Tessa Maher PAC [Physician Personnel Adviser] - 10/31/17 9:00 am Jabier Myles MD [Partnered Physician] - 11/11/17 1:00 pm Josephine Noguera MD [Primary Care Provider] -
[2017-10-24] MEDS: *HR* OxyCODONE Immed Rel 5 MG TABLET PO PRN ×2 (06:22→14:02)
[2017-10-24] MEDS: *HR* Enoxaparin 30 MG/0.3 ML SYRINGE SQ SCH ×2 (06:22→17:01)
[2017-10-24] MEDS: Aspirin 81 MG TAB.CHEW PO SCH (08:01)
[2017-10-24] MEDS: BuPROPion SR (12 HR) 150 MG TABLET PO SCH ×2 (08:01→20:39)
[2017-10-24] MEDS: Mirtazapine 15 MG TABLET PO SCH (08:01)
[2017-10-24] MEDS: Loratadine 10 MG TABLET PO SCH (08:01)
[2017-10-24] MEDS: Famotidine 20 MG TABLET PO SCH (08:01)
[2017-10-24] MEDS: Methocarbamol 750 MG TABLET PO SCH ×3 (08:01→20:39)
[2017-10-24] MEDS: Beclomethasone 80mcg MDI IH SCH ×2 (08:08→20:10)
--- NOTE | 2017-10-24 15:57 | Event Note ---
Date of Encounter: 10/24/17 Time of Encounter: 12:00 PCR - POD#3 - Right TKR Robo 10/21/17 Patient seen at bedside. Sleeping comfortably. Labs reviewed. Pain control: adequate now cts Discharge plan: Patient will likely require ECF to current lmitations - both continuities placed.
[2017-10-24] MEDS: amLODIPine 5 MG TABLET PO SCH (20:39)
[2017-10-25] MEDS: *HR* Enoxaparin 30 MG/0.3 ML SYRINGE SQ SCH (05:22)
[2017-10-25] MEDS: *HR* OxyCODONE Immed Rel 5 MG TABLET PO PRN ×2 (05:24→10:13)
[2017-10-25] MEDS: Beclomethasone 80mcg MDI IH SCH (08:14)
--- NOTE | 2017-10-25 08:21 | Orthopedics Progress Note ---
Date of Encounter: 10/25/17 Time of Encounter: 08:20 - Assessment and Plan (1) Arthritis of knee, right Current Visit: No Status: Chronic (2) Status post total knee replacement, right Current Visit: No Status: Acute (3) NANETTE (obstructive sleep apnea) Current Visit: No Status: Chronic (4) Asthma Current Visit: No Status: Chronic Qualifiers: Asthma severity: unspecified severity Asthma persistence: unspecified Asthma complication type: unspecified Qualified Code(s): J45.909 - Unspecified asthma, uncomplicated (5) Morbid obesity with BMI of 50.0-59.9, adult Current Visit: Yes Status: Chronic (6) Acute blood loss anemia Current Visit: Yes Status: Acute Subjective Interval history: Patient was seen this morning doing well without complaints. Afebrile vital signs stable. Operative extremity: Neurovascularly intact Dressing clean dry and intact Calves nontender Assessment and plan: Continue with postoperative care discharged today Objective Vital signs: Vital Signs Temp Pulse Resp BP Pulse Ox 10/25/17 07:14 98.5 F 109 20 130/84 92 10/25/17 04:24 98.4 F 76 15 132/76 98 10/24/17 20:10 16 96 10/24/17 19:52 99.2 F 81 15 132/81 94 10/24/17 14:59 98.1 F 105 16 110/75 96 10/24/17 10:00 98.4 F 110 16 114/78 95 Intake and Output 10/24/17 10/25/17 10/25/17 23:59 07:59 15:59 Intake Total 100 / 100 Balance 100 / 100 Intake: Oral 100 / 100 Other: # Voids 2 - Labs CBC & BMP: 10/23/17 05:08 10/23/17 05:08 Labs: Abnormal lab results Hgb 9.7 g/dL (11.5-15.4) L 10/23/17 05:08 Hct 30.9 % (35.3-44.9) L 10/23/17 05:08 Carbon Dioxide 31 mEq/L (23-29) H 10/23/17 05:08 Glucose 141 mg/dL (70-105) H 10/23/17 05:08 Calcium 8.5 mg/dL (8.6-10.3) L 10/23/17 05:08 - VTE Documentation of Mechanical Device: Venous foot pump, device Consult Discharge Plan - Plan Additional Instructions: Discharge Instructions: Total Knee Replacement Please call [facility] ([phone]), your Primary Care Physician, or report to the Emergency Room if you have any of the following symptoms: Nausea, vomiting, fever greater that 101.5, swelling, chest pain, shortness of breath, increased pain/redness/drainage/odor for your incision site, numbness/ tingling, or any other concerning symptoms. ACTIVITY:Weight-bearing as tolerated. You may progress off support (crutches or walker) as tolerated. MEDICATIONS: Upon discharge resume your home medications. Take all the medications as prescribed. Take a stool softener if taking narcotic pain medications. Stool softeners are only effective if you drink enough fluids. Drink 6-8 glass of water or fluids a day, unless this is not allowed for another health problem. Despite using stool softeners, if you haven't had a bowel movement in 3 days, please switch to a gentle laxative. Gentle laxatives are sold over the counter. You should have a bowel movement within 24 hours, if not call the office. You will be discharged from the hospital with a prescription for pain medication. You are encouraged to decrease the use of narcotic pain medication as tolerated. Should you require a refill, please call the office. [facility] prescribes narcotic pain medication for only 4-6 weeks after surgery. If you require pain medication beyond this time period, you may be referred to your Primary Care Physician or to the Pain Clinic for further evaluation. Plan ahead for refills on pain medication as many narcotics either need to be picked up at the office or mailed. It is best to call 48-72 hours in advance of needing a prescription refill so you don't run out of medication. To help control the post-operative pain, you may take NSAIDs (Aleve,Advil, Motrin, Ibuprofen, Naprosyn) or Tylenol as prescribed on the bottle in addition to the pain medication. ANTICOAGULATION (blood thinners): Continue your Aspirin, Lovenox or Coumadin as prescribed to help prevent a blood clot in the leg or in the lungs. As long as your incision remains dry and you tolerate the NSAIDs (Aleve, Advil, Motrin, ibuprofen, naprosyn), it is OK to use the NSAIDS while you are taking your anticoagulation medication. Should your incision start to drain, stop the NSAID and contact our office. Common symptoms of blood clot in the legs include: localized pain, swelling, calf tenderness, redness or discoloration of the skin. Blood clot in the lung symptoms include: shortness of breath, rapid pulse, sweating, and chest pain that worsens with deep breathing, coughing up blood, lightheadedness, feelings of anxiety. If you experience any of these symptoms notify your physician immediately, go to the emergency room, or if having trouble breathing, call 911. WOUND CARE: Leave the dressing on for 7 to 10days. You may change the dressing if it becomes saturated greater than 50%. Do not get the dressing wet at anytime. Wash your hands with antibacterial soap, rinse and dry prior to any wound care. If you have whitney the visiting nurse or rehab facility can remove the stapes 10-14 days after surgery [address] steri-strips across the wound. Leave the steri-strips in place until they fall off on their won. You may let water from the shower run on top of the steri-strips. If you do not have a visiting nurse or rehab facility, you will need to return to the office at 10-14 days for the whitney to be removed. If you have itching or redness around the dressing call the office. FOLLOW-UP: Please follow up with your surgeon in the orthopedic clinic in 4 weeks from the day of surgery. If you have whitney that need to be removed, you will need to come back to the office in 10-14 days from the day of surgery. Referrals: Hardy Jara MD [Partnered Physician] - 11/20/17 5:10 pm Tessa Maher PAC [Physician Embroidery Finisher] - 10/31/17 9:00 am Jabier Myles MD [Partnered Physician] - 11/11/17 1:00 pm Josephine Noguera MD [Primary Care Provider] -
[2017-10-25] MEDS: Methocarbamol 750 MG TABLET PO SCH (10:13)
[2017-10-25] MEDS: Mirtazapine 15 MG TABLET PO SCH (10:13)
[2017-10-25] MEDS: Loratadine 10 MG TABLET PO SCH (10:13)
[2017-10-25] MEDS: Aspirin 81 MG TAB.CHEW PO SCH (10:13)
[2017-10-25] MEDS: Famotidine 20 MG TABLET PO SCH (10:13)
[2017-10-25] MEDS: BuPROPion SR (12 HR) 150 MG TABLET PO SCH (10:13)
[2017-10-25 12:44] VITALS: BP 125/79
== END 2017-10-25 13:05 | DRG 302 ==
LOC: SAMDAY 11:11 → 3NENU 17:38
PROVIDERS: ADMIT Orthopaedic Surgery; ATTEND Orthopaedic Surgery